=== PATIENT | female | born 1995 | race Caucasian/White ===

== ENCOUNTER 2021-01-18 16:20 | Emergency (ER) | payer MEDICAID, OTHER ==
[~2021-01-18] VITALS: Ht 167.6 cm; Wt 188.6 kg
[~2021-01-18 16:20] MED LIST: ALBU6.7H9 INH; HYDR-3965 PO; LIDO20SO PO; ONDA4TAB6 PO; ONDA8TAB6 PO
[2021-01-18 16:56] LABS: CLARITY,URINE CLOUDY (Clear); COLOR,URINE YELLOW (Yellow); GLUCOSE, URINE NEGATIVE (Neg); KETONES,URINE NEGATIVE (Neg); LEUKOCYTE ESTERASE ,URINE MODERATE (Neg); NITRITES, URINE NEGATIVE (Neg); OCCULT BLOOD,URINE LARGE (Neg); PH,URINE 5.5 (4.8-8.0); PROTEIN,URINE 30 mg/dl (Neg); UROBILINOGEN,URINE 0.2 E.U/dL (0.2-1.0)
[2021-01-18 16:57] LABS: PREOP URINE HCG NEGATIVE (NEGATIVE)
[2021-01-18 17:05] LABS: UA COLLECTION TYPE CLN CATCH MIDSTREAM
[2021-01-18 17:06] LABS: BACTERIA,URINE 1+ /HPF (Neg); MUCUS STRANDS FEW /LPF (Neg); RBC,URINE 50-100 /HPF (0-2); SQUAMOUS EPITHELIAL CELL,UR MODERATE /LPF (FEW); TRANSITIONAL EPI CELLS,URINE FEW /HPF; WBC,URINE 50-100 /HPF (0-4)
[2021-01-18] MEDS ORDERED: CIPR-202 PO (17:27)
[2021-01-18] MEDS ORDERED: PHEN-786 PO (17:27)
[2021-01-18 17:35] VITALS: BP 163/87
== END 2021-01-18 17:36 | disposition home or self-care (01) ==
LOC: ER 16:21
DX: N39.0 Urinary tract infection, site not specified (principal); R30.0 Dysuria; M54.5 Low back pain; F32.9 Major depressive disorder, single episode, unspecified; Z90.49 Acquired absence of other specified parts of digestive tract; Z98.890 Other specified postprocedural states; Z88.0 Allergy status to penicillin; Z88.6 Allergy status to analgesic agent; Z79.2 Long term (current) use of antibiotics; Z79.899 Other long term (current) drug therapy
CPT/HCPCS: 81001; 81025; 87077; 87088; 87186; 99283

== ENCOUNTER 2021-06-15 16:53 | Emergency (ER) | payer BC, MEDICAID ==
[~2021-06-15] VITALS: Ht 167.6 cm; Wt 177.0 kg
[~2021-06-15 16:53] MED LIST changes: +PHEN-786 PO
[2021-06-15 17:05] VITALS: BP 147/92
[2021-06-15] MEDS ORDERED: METH4TAB3 PO (17:11)
== END 2021-06-15 17:18 | disposition home or self-care (01) ==
LOC: ER 16:54
DX: S50.862A Insect bite (nonvenomous) of left forearm, initial encounter (principal); L50.0 Allergic urticaria; F32.9 Major depressive disorder, single episode, unspecified; Z88.0 Allergy status to penicillin; Z88.1 Allergy status to other antibiotic agents; W57.XXXA Bitten or stung by nonvenomous insect and other nonvenomous arthropods, initial encounter; Y93.89 Activity, other specified; Y92.89 Other specified places as the place of occurrence of the external cause; Y99.8 Other external cause status
CPT/HCPCS: 99283

== ENCOUNTER 2021-08-22 12:46 | Emergency (ER) | payer BC, MEDICAID ==
[~2021-08-22] VITALS: Ht 167.6 cm; Wt 204.6 kg
[~2021-08-22 12:46] MED LIST changes: +METH4TAB3 PO
[2021-08-22 13:17] VITALS: BP 173/91
[2021-08-22] MEDS ORDERED: IBUP-1984 PO (19:03)
[2021-08-22] MEDS ORDERED: ORPH100T2 PO (19:03)
== END 2021-08-22 19:17 | disposition home or self-care (01) ==
LOC: ER 12:47
DX: M25.511 Pain in right shoulder (principal); F32.9 Major depressive disorder, single episode, unspecified; Z90.49 Acquired absence of other specified parts of digestive tract; Z98.890 Other specified postprocedural states; Z88.0 Allergy status to penicillin; Z88.6 Allergy status to analgesic agent; Z79.899 Other long term (current) drug therapy
CPT/HCPCS: 73030; 99283

== ENCOUNTER 2022-08-27 15:26 | Emergency (ER) | payer MEDICAID ==
[~2022-08-27] VITALS: Ht 167.6 cm; Wt 182.0 kg
[~2022-08-27 15:26] MED LIST changes: +ALBU6.7H14 INH; -ALBU6.7H9 INH; +ORPH100T2 PO
[2022-08-27 15:28] VITALS: BP 166/93
[2022-08-27] MEDS ORDERED: PRED20TA PO (16:23)
[2022-08-27] MEDS ORDERED: CEFD300C3 PO (16:23)
[2022-08-27] MEDS ORDERED: FLUT16SP2 BOTHNARES (16:23)
== END 2022-08-27 16:33 | disposition home or self-care (01) ==
LOC: ER 15:26
DX: J01.10 Acute frontal sinusitis, unspecified (principal); Z20.822 Contact with and (suspected) exposure to COVID-19; F32.A Depression, unspecified; Z88.0 Allergy status to penicillin; Z88.6 Allergy status to analgesic agent; Z79.899 Other long term (current) drug therapy
CPT/HCPCS: 87635; 99283; C9803

== ENCOUNTER 2022-09-08 18:09 | Emergency (ER) | payer MEDICAID ==
[~2022-09-08] VITALS: Ht 167.6 cm; Wt 195.4 kg
[~2022-09-08 18:09] MED LIST changes: +CEFD300C3 PO; +FLUT16SP2 BOTHNARES
[2022-09-08 20:58] VITALS: BP 146/81
[2022-09-08] MEDS ORDERED: clindamycin 150mg capsule PO ONE ×2 (22:45→23:00)
[2022-09-08] MEDS ORDERED: CLIN300C54 PO (22:47)
--- NOTE | 2022-09-08 23:05 | NUR ---
300mg of abx given - one pill had originally dropped on the ground.
== END 2022-09-08 23:08 | disposition home or self-care (01) ==
LOC: ER 18:10
DX: R68.84 Jaw pain (principal); K02.9 Dental caries, unspecified; Z88.0 Allergy status to penicillin; Z88.6 Allergy status to analgesic agent; Z90.49 Acquired absence of other specified parts of digestive tract; Z87.891 Personal history of nicotine dependence
CPT/HCPCS: 99283

== ENCOUNTER 2022-09-21 10:33 | Emergency (ER) | payer MEDICAID ==
[~2022-09-21] VITALS: Ht 167.6 cm; Wt 195.4 kg
[2022-09-21 14:32] LABS: BASOPHILS # (AUTO) 0.1 X10'3 (0-0.2); BASOPHILS % (AUTO) 0.6 % (0-1); EOSINOPHILS # (AUTO) 0.2 X10'3 (0-0.9); EOSINOPHILS % (AUTO) 2.4 % (0-6); HEMATOCRIT 36.2 % (35.0-45.0); HEMOGLOBIN 11.9 g/dl (12.0-16.0); LYMPHOCYTES # (AUTO) 1.9 X10'3 (1.1-4.8); LYMPHOCYTES % (AUTO) 20.6 % (21-51); MEAN CORPUSCULAR HEMOGLOBIN 25.1 PG (27.0-31.0); MEAN CORPUSCULAR HGB CONC 32.8 g/dL (33.0-36.5); MEAN CORPUSCULAR VOLUME 76.3 FL (78-98); MEAN PLATELET VOLUME 7.2 FL (7.4-10.4); MONOCYTES # (AUTO) 0.4 X10'3 (0-0.9); MONOCYTES % (AUTO) 4.8 % (2-12); NEUTROPHILS # (AUTO) 6.6 X10'3 (1.8-7.7); NEUTROPHILS % (AUTO) 71.6 % (42-75); PLATELET COUNT 413 X10'3 (140-440); RED BLOOD COUNT 4.74 X10'6 (4.20-5.60); RED CELL DISTRIBUTION WIDTH 17.2 % (11.5-14.5); WHITE BLOOD COUNT 9.3 X10'3 (4.5-11.0)
[2022-09-21 14:45] LABS: ALANINE AMINOTRANSFERASE 40 U/L (12-78); ALBUMIN 3.3 G/DL (3.4-5.0); ALBUMIN/GLOBULIN RATIO 0.7 (1.1-1.5); ALKALINE PHOSPHATASE 108 IU/L (46-116); ANION GAP 9 (8-16); ASPARTATE AMINO TRANSFERASE 24 U/L (10-37); BILIRUBIN,TOTAL 0.2 MG/DL (0.1-1.0); BLOOD UREA NITROGEN 15 MG/DL (7-18); CALCIUM 9.3 MG/DL (8.5-10.1); CHLORIDE 103 MMOL/L (99-107); CREATININE 0.79 MG/DL (0.40-0.90); GLUCOSE 115 MG/DL (70-104); POTASSIUM 3.9 MMOL/L (3.5-5.1); SODIUM 140 MMOL/L (135-145); TOTAL PROTEIN 8.3 G/DL (6.4-8.2); eGFR 88 ML/MIN
--- NOTE | 2022-09-21 14:57 | NUR ---
I agree with Jass BLUM's general assessment.
[2022-09-21] MEDS ORDERED: ONDA4TAB12 PO (15:54)
[2022-09-21 16:07] VITALS: BP 145/82
== END 2022-09-21 16:16 | disposition home or self-care (01) ==
LOC: ER 10:33
DX: K92.1 Melena (principal); Z20.822 Contact with and (suspected) exposure to COVID-19; R05.9 Cough, unspecified; R51.9 Headache, unspecified; F32.9 Major depressive disorder, single episode, unspecified; Z90.49 Acquired absence of other specified parts of digestive tract; Z88.0 Allergy status to penicillin; Z88.6 Allergy status to analgesic agent; Z79.899 Other long term (current) drug therapy
CPT/HCPCS: 36415; 80053; 85025; 87635; 99283; C9803

== ENCOUNTER 2023-05-27 16:12 | Emergency (ER) | payer MEDICAID ==
[~2023-05-27] VITALS: Ht 167.6 cm; Wt 183.0 kg
[~2023-05-27 16:12] MED LIST changes: -CEFD300C3 PO; +ONDA4TAB12 PO; -ORPH100T2 PO; +ORPH100T4 PO
[2023-05-27 16:39] VITALS: BP 160/98; PULSE 94; RESP 18; TEMP 97.4; O2SAT 98
[2023-05-27] MEDS ORDERED: CLIN300C54 PO (17:57)
[2023-05-27] MEDS ORDERED: BENZ1LOZ74 PO (17:57)
[2023-05-27] MEDS ORDERED: dexamethasone sod phosphate 10mg/ml inj PO STA (17:57)
[2023-05-27] MEDS ORDERED: LIDOcaine Viscous 15ml cup MM PRN (18:00)
[2023-05-27] MEDS ORDERED: clindamycin 150mg capsule PO ONE (18:00)
== END 2023-05-27 18:15 | disposition home or self-care (01) ==
LOC: ER 16:12
DX: J02.9 Acute pharyngitis, unspecified (principal); F32.A Depression, unspecified; Z88.0 Allergy status to penicillin; Z88.6 Allergy status to analgesic agent; Z79.899 Other long term (current) drug therapy; Z79.1 Long term (current) use of non-steroidal anti-inflammatories (NSAID); Z79.2 Long term (current) use of antibiotics
CPT/HCPCS: 87081; 87880; 99284; J1100